=== PATIENT | female | born 1980 | race Asian ===

== ENCOUNTER 2017-09-28 00:35 | Inpatient (IN) | payer SELFPAY ==
[~2017-09-28] VITALS: Ht 160 cm; Wt 66.7 kg
[~2017-09-28 00:35] MED LIST: IBUP-2218 PO
[2017-09-28] MEDS ORDERED: OXYTOCIN 20 UNITS in LACTATED RINGERS 1,000 ML IV SCH (01:52)
[2017-09-28] MEDS ORDERED: PROMETHAZINE 25 MG/ML VIAL IVP PRN (01:55)
[2017-09-28] MEDS ORDERED: METHYLERGONOVINE 0.2 MG/ML AMP IM PRN ×2 (01:55→07:45)
[2017-09-28] MEDS ORDERED: CARBOPROST 250 MCG/ML AMP IM PRN (01:55)
[2017-09-28] MEDS ORDERED: OXYTOCIN 10 UNITS/ML VIAL IM ONE (01:55)
[2017-09-28] MEDS ORDERED: NALBUPHINE 10 MG/ML AMP IVP PRN (01:55)
[2017-09-28] MEDS: LACTATED RINGERS 1,000 ML IV SCH ×2 (02:18→04:57)
[2017-09-28] MEDS ORDERED: OXYTOCIN 20 UNITS/LR PREMIX 1,000 ML IV ONE (02:21)
[2017-09-28 02:32] LABS: APPEARANCE,URINE CLEAR (CLEAR); BILIRUBIN,URINE NEGATIVE (NEGATIVE); BLOOD, URINE NEGATIVE (NEGATIVE); COLOR,URINE YELLOW (YELLOW); LEUKOCYTE ESTERASE ,URINE 1+ (NEGATIVE); NITRITE, URINE NEGATIVE (NEGATIVE); UGLUCOSE NEGATIVE (NEGATIVE)
[2017-09-28 02:46] VITALS: BP 91/56
[2017-09-28 02:52] LABS: RBC,URINE 0-5 (RARE) /HPF (0-5)
[2017-09-28 03:23] LABS: BASOPHILS % (AUTO) 0.3 % (0.0-2.0); EOSINOPHILS # (AUTO) 0.1 K/uL (0-0.4); EOSINOPHILS % (AUTO) 0.8 % (0.0-4.0); HEMATOCRIT 34.3 % (36-48); HEMOGLOBIN 11.7 g/dL (12.0-16.0); LYMPHOCYTES # (AUTO) 1.7 K/uL (2.5-16.5); LYMPHOCYTES % (AUTO) 18.5 % (20.5-51.1); MEAN CORPUSCULAR HEMOGLOBIN 32 pg (27-31); MEAN CORPUSCULAR HGB CONC 34 g/dL (33-37); MONOCYTES # (AUTO) 0.6 K/uL (0.8-1.0); MONOCYTES % (AUTO) 6.8 % (1.7-9.3); NEUTROPHILS # (AUTO) 6.8 K/uL (1.8-7.7); NEUTROPHILS % (AUTO) 73.6 % (42.2-75.2); PLATELET COUNT (AUTO) 147 K/uL (140-450); RED BLOOD CELL COUNT(AUTO) 3.65 MIL/uL (4.20-5.40); RED CELL DISTRIBUTION WIDTH 13.8 % (11.6-13.7); WHITE BLOOD COUNT (AUTO) 9.2 K/uL (4.8-10.8)
[2017-09-28] MEDS ORDERED: BUPIVACAINE 0.125%/NS PREMIX 250 ML ONE (04:20)
[2017-09-28] MEDS ORDERED: BUPIVACAINE 0.125%/NS PREMIX 250 ML EPI SCH (04:45)
[2017-09-28] MEDS ORDERED: OXYTOCIN 10 UNITS/ML VIAL ONE (07:11)
[2017-09-28] MEDS ORDERED: BENZOCAINE/MENTHOL 20%-0.5% 60 GM CAN TP PRN (07:45)
[2017-09-28] MEDS ORDERED: TEMAZEPAM 15 MG CAP PO PRN (07:45)
[2017-09-28] MEDS ORDERED: oxyCODONE/APAP 5/325 MG 1 TAB TAB PO PRN (07:45)
[2017-09-28] MEDS ORDERED: OXYTOCIN 10 UNITS/ML VIAL IM PRN (07:45)
[2017-09-28] MEDS ORDERED: HYDROcodone/APAP 5/325 MG 1 TAB TAB PO PRN (07:45)
[2017-09-28] MEDS ORDERED: MEASLES, MUMPS, AND RUBELLA 1 VIAL SQVAC PRN (07:45)
--- NOTE | 2017-09-28 09:25 | NUR ---
PATIENT HAS BEEN SCREENED AND CATEGORIZED LOW NUTRITION RISK. PATIENT WILL BE SEEN WITHIN 7 DAYS OF ADMISSION. 10/04/[address]
[2017-09-28 12:51] LABS: RAPID PLASMA REAGIN NON-REACTIVE (Non Reactiv)
[2017-09-28] MEDS: IBUPROFEN 800 MG TAB PO PRN (20:48)
[2017-09-28] MEDS ORDERED: DOCUSATE SOD/SENNA 50/8.6 MG 1 TAB PO SCH (21:00)
[2017-09-29] MEDS: IBUPROFEN 800 MG TAB PO PRN (09:11)
[2017-09-29 10:57] LABS: HEMATOCRIT 33.6 % (36-48); HEMOGLOBIN 11.3 g/dL (12.0-16.0)
[2017-09-29] MEDS ORDERED: IBUP-1842 PO (12:34)
== END 2017-09-29 15:25 | disposition home or self-care (01) | DRG 775 ==
LOC: MLD 00:35 → MFCC 10:26
PROVIDERS: ADMIT Obstetrics & Gynecology; ATTEND Obstetrics & Gynecology
PROC: 10E0XZZ Delivery of Products of Conception, External Approach (ICD-10-PCS; principal; 2017-09-28)
PROC: 0KQM0ZZ Repair Perineum Muscle, Open Approach (ICD-10-PCS; 2017-09-28)
PROC: 10907ZC Drainage of Amniotic Fluid, Therapeutic from Products of Conception, Via Natural or Artificial Opening (ICD-10-PCS; 2017-09-28)
PROC: 3E0R3BZ Introduction of Anesthetic Agent into Spinal Canal, Percutaneous Approach (ICD-10-PCS; 2017-09-28)
PROC: 00HU33Z Insertion of Infusion Device into Spinal Canal, Percutaneous Approach (ICD-10-PCS; 2017-09-28)
DX: O69.81X0 Labor and delivery complicated by cord around neck, without compression, not applicable or unspecified (principal); O70.1 Second degree perineal laceration during delivery; Z37.0 Single live birth; Z3A.40 40 weeks gestation of pregnancy
CPT/HCPCS: 36415; 51702; 59409; 81001; 85018; 85025; 86592; 86886; 86900; 86901; 87086; 90715; J2590; J3490; J7120